=== PATIENT | female | born 1995 | race Caucasian/White ===

== ENCOUNTER 2020-11-07 17:45 | Emergency (ER) | payer OTHER ==
[~2020-11-07] VITALS: Ht 157 cm; Wt 85.0 kg
[2020-11-07] MEDS ORDERED: morphine INJ 10 MG/ML 1ML (SYR OR VIAL) IVP STA (17:58)
[2020-11-07] MEDS ORDERED: ONDANSETRON 4 MG/2 ML (SDV) Z0FRAN IVP ONE (18:00)
[2020-11-07] MEDS ORDERED: PANTOPRAZOLE 40 MG (PROTONIX) VIAL IV ONE (18:00)
[2020-11-07] MEDS ORDERED: ANTACID SUSP 30 ML UDC (MYLANTA) PO ONE (18:00)
[2020-11-07] MEDS ORDERED: NS IV 1000 ML 1,000 ML IV SCH (18:00)
[2020-11-07] MEDS ORDERED: LIDOCAINE 2% VISCOUS 15 ML UDC PO ONE (18:00)
--- NOTE | 2020-11-07 18:11 | ED General ---
General Chief Complaint: Abdominal/GI Problems Stated Complaint: ABD PAIN Nursing Triage Note: ABDOMINAL PAIN FOR 2 WEEKS OFF AND ON WITH DIARRHEA AND NAUSEA AFTER SHE EATS. DIFFUSE CRAMPING AND "MY BELLY HURTS" THAT STARTED AGAIN THIS AM. ONE EPISODE OF VOMITING. BM YESTERDAY. History of Present Illness Date Seen by Provider: Nov 07, 2020 Time Seen by Provider: 18:09 Initial Comments Patient presented to the emergency department for evaluation of abdominal pain that has been going on off and on for the past 2 weeks but she says it has been present all day today. She describes it as a diffuse cramping worse in the epigastrium and bilateral upper quadrants and radiates towards the back and has been associated with nausea and one episode of nonbloody nonbilious emesis this morning. She says she has had intermittent diarrhea as well but has not been on antibiotics traveled or chemotherapy recently. She denies fevers chills dysuria hematuria vaginal bleeding vaginal discharge or prior abdominal surgeries. She made the comment that she has been on Protonix intermittently over the past several weeks but vomited up her Protonix this morning. She is in no acute distress with normal vital signs. Allergies and Home Medications Allergies Coded Allergies: No Known Drug Allergies (Unverified , 11/07/20) Patient Home Medication List Home Medication List Reviewed: Yes Review of Systems Review of Systems Constitutional: no symptoms reported EENTM: no symptoms reported Respiratory: no symptoms reported Cardiovascular: no symptoms reported Gastrointestinal: diarrhea, nausea, vomiting Genitourinary: no symptoms reported Musculoskeletal: back pain Skin: no symptoms reported Psychiatric/Neurological: No Symptoms Reported All Other Systems Reviewed Negative Unless Noted: Yes Past Idmxhng-Jyuewx-Gnlvio Hx Patient Social History Tobacco Use?: No Use of E-Cig and/or Vaping dev: No Substance use?: No Alcohol Use?: No Pt feels they are or have been: No Physical Exam Vital Signs Vital Signs - First Documented 11/07/20 17:58 Temp 36.5 Pulse 120 Resp 16 B/P (MAP) 123/80 (94) Pulse Ox 98 O2 Delivery Room Air Capillary Refill : Less Than 3 Seconds Height, Weight, BMI Height: '" Weight: lbs. oz. kg; 34.00 BMI Method: General Appearance: No Apparent Distress, WD/WN Neck: Supple Respiratory: No Respiratory Distress Cardiovascular: Regular Rate, Rhythm Gastrointestinal: Soft, Tenderness (Diffuse upper abdominal tenderness to palpation with no focal pain rebound or guarding) Back: Normal Inspection Extremity: Normal Capillary Refill Neurologic/Psychiatric: Alert, Oriented x3 Skin: Warm/Dry Progress/Results/Core Measures Suspected Sepsis SIRS Temperature: Pulse: 120 Respiratory Rate: 16 Laboratory Tests 11/07/20 18:00: White Blood Count 14.1H Blood Pressure 123 /80 Mean: 94 Laboratory Tests 11/07/20 18:00: Creatinine 0.66, Platelet Count 297, Total Bilirubin 0.7 Results/Orders Lab Results Laboratory Tests Test 11/07/20 17:50 11/07/20 18:00 Range/Units Urine Color YELLOW Urine Clarity SLT CLOUDY Urine pH 8.0 5-9 Urine Specific [place] 1.020 1.016-1.022 Urine Protein NEGATIVE NEGATIVE Urine Glucose (UA) NEGATIVE NEGATIVE Urine Ketones NEGATIVE NEGATIVE Urine Nitrite NEGATIVE NEGATIVE Urine Bilirubin NEGATIVE NEGATIVE Urine Urobilinogen 0.2 < = 1.0 MG/DL Urine Leukocyte Esterase NEGATIVE NEGATIVE Urine RBC (Auto) NEGATIVE NEGATIVE Urine RBC NONE /HPF Urine WBC 0-2 /HPF Urine Squamous Epithelial Cells 5-10 /HPF Urine Crystals NONE /LPF Urine Bacteria FEW H /HPF Urine Casts NONE /LPF Urine Mucus NEGATIVE /LPF Urine Culture Indicated NO Urine Test NEGATIVE NEGATIVE White Blood Count 14.1 H 4.3-11.0 10^3/uL Red Blood Count 5.19 4.35-5.85 10^6/uL Hemoglobin 15.4 11.5-16.0 G/DL Hematocrit 46 35-52 % Mean Corpuscular Volume 88 80-99 FL Mean Corpuscular Hemoglobin 30 25-34 PG Mean Corpuscular Hemoglobin Concent 34 32-36 G/DL Red Cell Distribution Width 12.7 10.0-14.5 % Platelet Count 297 130-400 10^3/uL Mean Platelet Volume 10.1 7.4-10.4 FL Neutrophils (%) (Auto) 87 H 42-75 % Lymphocytes (%) (Auto) 7 L 12-44 % Monocytes (%) (Auto) 6 0-12 % Eosinophils (%) (Auto) 1 0-10 % Basophils (%) (Auto) 0 0-10 % Neutrophils # (Auto) 12.3 H 1.8-7.8 X 10^3 Lymphocytes # (Auto) 0.9 L 1.0-4.0 X 10^3 Monocytes # (Auto) 0.8 0.0-1.0 X 10^3 Eosinophils # (Auto) 0.1 0.0-0.3 10^3/uL Basophils # (Auto) 0.0 0.0-0.1 10^3/uL Neutrophils % (Manual) 78 % Lymphocytes % (Manual) 11 % Monocytes % (Manual) 3 % Eosinophils % (Manual) 1 % Basophils % (Manual) 0 % Band Neutrophils 7 % Sodium Level 137 135-145 MMOL/L Potassium Level 4.3 3.6-5.0 MMOL/L Chloride Level 102 98-107 MMOL/L Carbon Dioxide Level 23 21-32 MMOL/L Anion Gap 12 5-14 MMOL/L Blood Urea Nitrogen 8 7-18 MG/DL Creatinine 0.66 0.60-1.30 MG/DL Estimat Glomerular Filtration Rate 109 BUN/Creatinine Ratio 12 Glucose Level 99 70-105 MG/DL Calcium Level 9.6 8.5-10.1 MG/DL Corrected Calcium 8.5-10.1 MG/DL Total Bilirubin 0.7 0.1-1.0 MG/DL Aspartate Amino Transf (AST/SGOT) 14 5-34 U/L Alanine Aminotransferase (ALT/SGPT) 20 0-55 U/L Alkaline Phosphatase 80 40-136 U/L Total Protein 8.0 6.4-8.2 GM/DL Albumin 4.6 H 3.2-4.5 GM/DL Lipase 16 8-78 U/L My Orders Orders - VAMSHI OLVERA DO Cbc With Automated Diff (11/07/20 17:58) Comprehensive Metabolic Panel (11/07/20 17:58) Hcg,Qualitative Urine (11/07/20 17:58) Ua Culture If Indicated (11/07/20 17:58) Lipase (11/07/20 17:58) Ct Abdomen/Pelvis W (11/07/20 17:58) Iv/Invasive Line Insertion .IV start (11/07/20 17:58) Ondansetron Injection (Zofran Injectio (11/07/20 18:00) Morphine Injection (Morphine Injection (11/07/20 17:58) Antacid Suspension (Mylanta Suspension (11/07/20 18:00) Pantoprazole Injection (Protonix Injecti (11/07/20 18:00) Lidocaine 2% Viscous 15 Ml (Xylocaine Vi (11/07/20 18:00) Ns Iv 1000 Ml (Sodium Chloride 0.9%) (11/07/20 18:00) Manual Differential (11/07/20 18:00) Iohexol Injection (Omnipaque 350 Mg/Ml 1 (11/07/20 19:00) Received Contrast (Hold Metformin- Contr (11/07/20 19:00) Sodium Chloride Flush (Catheter Flush Sy (11/07/20 19:00) Ns (Ivpb) (Sodium Chloride 0.9% Ivpb Bag (11/07/20 19:00) Medications Given in ED Current Medications Medications Dose Ordered Sig/Tiara Route Start Time Stop Time Status Last Admin Dose Admin Al Hydrox/Mg Hydrox/Simethicone 30 ml ONCE ONCE PO 11/07/20 18:00 11/07/20 18:01 DC 11/07/20 18:07 30 ML Iohexol 100 ml ONCE ONCE IV 11/07/20 19:00 11/07/20 19:01 DC 11/07/20 18:59 100 ML Lidocaine HCl 5 ml ONCE ONCE PO 11/07/20 18:00 11/07/20 18:01 DC 11/07/20 18:07 5 ML Ondansetron HCl 4 mg ONCE ONCE IVP 11/07/20 18:00 11/07/20 18:01 DC 11/07/20 18:05 4 MG Pantoprazole 40 mg ONCE ONCE IV 11/07/20 18:00 11/07/20 18:01 DC 11/07/20 18:06 40 MG Sodium Chloride 10 ml NEEDED PRN IV 11/07/20 19:00 11/07/20 18:59 10 ML Sodium Chloride 100 ml ONCE ONCE IV 11/07/20 19:00 11/07/20 19:01 DC 11/07/20 18:59 80 ML Vital Signs/I&O 11/07/20 17:58 Temp 36.5 Pulse 120 Resp 16 B/P (MAP) 123/80 (94) Pulse Ox 98 O2 Delivery Room Air Capillary Refill : Less Than 3 Seconds Blood Pressure Mean: 94 Progress Note : Progress Note Patient with nonspecific nonfocal abdominal pain that is likely gastritis or an ulcer. I will check labs and imaging to rule out acute surgical process and treat her symptoms and then reassess. Patient has findings of leukocytosis on her blood work and findings of a transverse colitis on her CT. no signs of surgical process and patient's pain improved significantly and her repeat abdominal exam is benign with no focal tenderness rebound or guarding. Patient said that she talk to her doctor and that they ordered a colonoscopy but no date has been sent. I told her I will start her on Cipro Flagyl who prescribed her medications for pain and nausea and she will need to take in a soft nonirritating diet with plenty of fluids. I told her to follow with her primary care provider later this week and come back to the ED sooner with worsening pain fevers vomiting or other general concerns. Patient aware and agreeable with plan and verbalized understanding of the above instructions. Departure Impression Primary Impression: Abdominal pain Qualified Codes: R10.84 - Generalized abdominal pain Additional Impressions: Nausea and vomiting Colitis Leukocytosis Disposition: HOME, SELF-CARE Condition: Stable Departure-Patient Inst. Referrals: DELONTE PFEIFFER MD (PCP/Family) Primary Care Physician Patient Instructions: Colitis Scripts Ondansetron (Ondansetron Odt) 4 Mg Tab.rapdis 4 MG PO Q6H PRN for NAUSEA/VOMITING-1ST LINE, #20 TAB Prov: VAMSHI OLVERA DO 11/07/20 Hydrocodone/Acetaminophen (Hydrocodone-Acetamin 5-325 mg) 1 Each Tablet 1 TAB PO Q6H PRN for PAIN-MODERATE (5-7), #20 TAB Prov: VAMSHI OLVERA DO 11/07/20 Ciprofloxacin HCl (Ciprofloxacin HCl) 500 Mg Tablet 500 MG PO BID, #14 TAB Prov: VAMSHI OLVERA DO 11/07/20 Metronidazole (Flagyl) 500 Mg Tablet 500 MG PO BID, #14 TAB Prov: VAMSHI OLVERA DO 11/07/20 VAMSHI OLVERA DO Nov 07, 2020 18:11
[2020-11-07 18:22] LABS: BASOPHILS % (AUTO) 0 % (0-10); EOSINOPHILS % (AUTO) 1 % (0-10); HEMATOCRIT 46 % (35-52); HEMOGLOBIN 15.4 G/DL (11.5-16.0); LYMPHOCYTES % (AUTO) 7 % (12-44); MEAN CORPUSCULAR HEMOGLOBIN 30 PG (25-34); MEAN CORPUSCULAR HGB CONC 34 G/DL (32-36); MEAN CORPUSCULAR VOLUME 88 FL (80-99); MEAN PLATELET VOLUME 10.1 FL (7.4-10.4); MONOCYTES % (AUTO) 6 % (0-12); NEUTROPHILS # (AUTO) 12.3 X 10^3 (1.8-7.8); NEUTROPHILS % (AUTO) 87 % (42-75); PLATELET COUNT 297 10^3/uL (130-400); WHITE BLOOD COUNT 14.1 10^3/uL (4.3-11.0)
[2020-11-07 18:23] LABS: CLARITY,URINE SLT CLOUDY; COLOR,URINE YELLOW; GLUCOSE, URINE (UA) NEGATIVE (NEGATIVE); PROTEIN,URINE NEGATIVE (NEGATIVE)
[2020-11-07 18:23] LABS: EOSINOPHILS # (AUTO) 0.1 10^3/uL (0.0-0.3); LYMPHOCYTES # (AUTO) 0.9 X 10^3 (1.0-4.0); MONOCYTES # (AUTO) 0.8 X 10^3 (0.0-1.0)
[2020-11-07 18:24] LABS: BACTERIA,URINE FEW /HPF; BILIRUBIN,URINE NEGATIVE (NEGATIVE); KETONES,URINE NEGATIVE (NEGATIVE); LEUKOCYTE ESTERASE ,URINE NEGATIVE (NEGATIVE); NITRITE,URINE NEGATIVE (NEGATIVE); WBC,URINE 0-2 /HPF
[2020-11-07 18:34] LABS: POTASSIUM 4.3 MMOL/L (3.6-5.0); SODIUM 137 MMOL/L (135-145)
[2020-11-07 18:35] LABS: ALANINE AMINOTRANSFERASE 20 U/L (0-55); ALBUMIN 4.6 GM/DL (3.2-4.5); ALKALINE PHOSPHATASE 80 U/L (40-136); BILIRUBIN,TOTAL 0.7 MG/DL (0.1-1.0); BUN/CREATININE RATIO 12; CALCIUM 9.6 MG/DL (8.5-10.1); CARBON DIOXIDE 23 MMOL/L (21-32); CHLORIDE 102 MMOL/L (98-107); CREATININE SERUM 0.66 MG/DL (0.60-1.30); GFR ESTIMATED 109; GLUCOSE 99 MG/DL (70-105); LIPASE 16 U/L (8-78)
[2020-11-07 19:00] LABS: BAND NEUTROPHILS 7 %; BASOPHILS % (MANUAL) 0 %; EOSINOPHILS % (MANUAL) 1 %; LYMPHOCYTES % (MANUAL) 11 %; MONOCYTES % (MANUAL) 3 %; NEUTROPHILS % (MANUAL) 78 %
[2020-11-07] MEDS ORDERED: CATHETER FLUSH 10 ML SYR IV PRN (19:00)
[2020-11-07] MEDS ORDERED: NS 100 ML (IVPB) BAG IV ONE (19:00)
[2020-11-07] MEDS ORDERED: HOLD METFORMIN - RECEIVED CONTRAST 20 ML VIAL IV SCH (19:00)
[2020-11-07] MEDS ORDERED: IOHEXOL 350 MG/ML 100 ML (OMNIPAQUE 350) VIAL IV ONE (19:00)
--- NOTE | 2020-11-07 19:19 | Diagnostic Imaging Report ---
PROCEDURE: CT abdomen and pelvis with contrast. TECHNIQUE: Multiple contiguous axial images were obtained through the abdomen and pelvis after administration of intravenous contrast. Auto Exposure Controls were utilized during the CT exam to meet ALARA standards for radiation dose reduction. All CT scans use one or more of the following dose optimizing techniques: automated exposure control, MA and/or KvP adjustment based on patient size and exam type or iterative reconstruction. DATE: November 07, 2020. COMPARISON: None. INDICATION: 25-year-old female, upper abdominal pain. FINDINGS: The visualized portions of the lungs are clear. The heart is not enlarged. There is no pericardial effusion. The liver is normal in size and contour. There is low-attenuation adjacent to the ligamentum teres most likely relating to focal fat, especially given the characteristic location. There is no otherwise identified liver lesion. The main, right, and left portal veins are patent. The gallbladder is unremarkable. There is no intrahepatic or extrahepatic bile duct dilation. The main pancreatic duct is not abnormally dilated. Unremarkable appearance of the pancreatic parenchyma. The spleen is normal in size. The adrenal glands are unremarkable. There is a punctate nonobstructing right renal stone on axial image 31. Urinary collecting systems are not distended. There is no identified ureteral stone. The urinary bladder is unremarkable. Grossly unremarkable appearance of the uterus and adnexa on CT. There is mucosal enhancement of the transverse colon. The appendix is unremarkable and well seen on axial image 51 and adjacent sequential images. There is no free intraperitoneal air. There is no drainable fluid collection. There is a small amount of free pelvic fluid. There is no identified abnormally enlarged lymph node in the abdomen or pelvis meeting CT size criteria for adenopathy. There is no identified acute bony abnormality. IMPRESSION: CT ABDOMEN AND PELVIS. 1. Mucosal enhancement of the transverse colon likely relating to a nonspecific colitis. Infectious and inflammatory etiologies are favored. 2. Small amount of free pelvic fluid which is potentially physiologic. 3. Low-attenuation area in the liver adjacent to the ligamentum teres most likely relating to an area of focal fat, especially given the characteristic location. 4. Punctate 1 mm nonobstructing right renal stone. No ureteral stone or hydronephrosis. Dictated by: Dictated on workstation # [id number]
[2020-11-07] MEDS ORDERED: METR500T PO (19:34)
[2020-11-07] MEDS ORDERED: ONDA4TAB11 PO (19:34)
[2020-11-07] MEDS ORDERED: ACHD5005 PO (19:34)
[2020-11-07] MEDS ORDERED: CIPR500T5 PO (19:34)
[2020-11-07 19:37] VITALS: BP 105/58
== END 2020-11-07 19:44 | disposition home or self-care (01) ==
LOC: ER FS 17:47
DX: K52.9 Noninfective gastroenteritis and colitis, unspecified (principal); D72.829 Elevated white blood cell count, unspecified
CPT/HCPCS: 36415; 74177; 80053; 81000; 83690; 84703; 85007; 85027; 96374; 96375

== ENCOUNTER 2021-06-02 19:36 | Emergency (ER) | payer OTHER ==
[~2021-06-02] VITALS: Ht 157 cm; Wt 84.0 kg
[~2021-06-02 19:36] MED LIST: ACHD5005 PO; CIPR500T5 PO; METR500T PO; ONDA4TAB11 PO
[2021-06-02] MEDS ORDERED: PROMETHAZINE INJ 25 MG/ML (PHENERGAN) AMP IVP STA (19:47)
[2021-06-02] MEDS ORDERED: LACTATED RINGERS 1,000 ML IV STA (19:47)
--- NOTE | 2021-06-02 19:47 | ED GI ---
General Stated Complaint: NAUSEA/VOMITING History of Present Illness Date Seen by Provider: Jun 02, 2021 Time Seen by Provider: 19:45 Initial Comments 26-year-old female presents with nausea vomiting diarrhea. She reports been going on for about 24 hours. Reports that she is having a hard time keeping anything down. Patient is 10 weeks and just wants to be evaluated. She reports that she takes Effexor and has been keep it down and is feeling a little foggy headed because of that. Patient denies any fever, chills, cough, shortness of breath or other systemic complaints. Allergies and Home Medications Allergies Coded Allergies: No Known Drug Allergies (Unverified , 11/07/20) Patient Home Medication List Home Medication List Reviewed: Yes Ciprofloxacin HCl (Ciprofloxacin HCl) 500 Mg Tablet, 500 MG PO BID Prescribed by: VAMSHI OLVERA on 11/07/201933 Hydrocodone/Acetaminophen (Hydrocodone-Acetamin 5-325 mg) 1 Each Tablet, 1 TAB PO Q6H PRN for PAIN-MODERATE (5-7) Prescribed by: VAMSHI OLVERA on 11/07/201934 Metronidazole (Flagyl) 500 Mg Tablet, 500 MG PO BID Prescribed by: VAMSHI OLVERA on 11/07/201933 Ondansetron (Ondansetron Odt) 4 Mg Tab.rapdis, 4 MG PO Q6H PRN for NAUSEA/VOMITING-1ST LINE Prescribed by: VAMSHI OLVERA on 11/07/201933 Review of Systems Review of Systems Constitutional: No chills, No fever Respiratory: Denies Cough, Denies Shortness of Air Gastrointestinal: Denies Abdominal Pain; Diarrhea, Nausea, Vomiting Genitourinary: No Symptoms Reported Musculoskeletal: no symptoms reported Skin: no symptoms reported Psychiatric/Neurological: No Symptoms Reported Endocrine: No Symptoms Reported Physical Exam Vital Signs Vital Signs - First Documented 06/02/21 19:42 Temp 36.3 Pulse 120 Resp 17 B/P (MAP) 138/85 (102) Pulse Ox 97 O2 Delivery Room Air Capillary Refill : Height/Weight/BMI Height: '" Weight: lbs. oz. kg; 34.00 BMI Method: General Appearance: WD/WN, no apparent distress Respiratory: lungs clear, normal breath sounds Cardiovascular: normal peripheral pulses, regular rate, rhythm Gastrointestinal: non tender, soft Extremities: normal range of motion, non-tender Neurologic/Psychiatric: alert, normal mood/affect, oriented x 3 Skin: normal color, warm/dry Progress/Results/Core Measures Results/Orders Lab Results Laboratory Tests Test 06/02/21 19:45 06/02/21 19:50 Range/Units Urine Color YELLOW Urine Clarity CLEAR Urine pH 6.0 5-9 Urine Specific [place] >=1.030 1.016-1.022 Urine Protein TRACE H NEGATIVE Urine Glucose (UA) NEGATIVE NEGATIVE Urine Ketones 2+ H NEGATIVE Urine Nitrite NEGATIVE NEGATIVE Urine Bilirubin 1+ H NEGATIVE Urine Urobilinogen 0.2 < = 1.0 MG/DL Urine Leukocyte Esterase NEGATIVE NEGATIVE Urine RBC (Auto) NEGATIVE NEGATIVE Urine RBC 2-5 H /HPF Urine WBC 0-2 /HPF Urine Squamous Epithelial Cells 2-5 /HPF Urine Crystals NONE /LPF Urine Bacteria TRACE /HPF Urine Casts NONE /LPF Urine Mucus LARGE H /LPF Urine Culture Indicated NO White Blood Count 11.5 H 4.3-11.0 10^3/uL Red Blood Count 4.62 3.80-5.11 10^6/uL Hemoglobin 13.5 11.5-16.0 g/dL Hematocrit 39 35-52 % Mean Corpuscular Volume 85 80-99 fL Mean Corpuscular Hemoglobin 29 25-34 pg Mean Corpuscular Hemoglobin Concent 35 32-36 g/dL Red Cell Distribution Width 12.7 10.0-14.5 % Platelet Count 293 130-400 10^3/uL Mean Platelet Volume 10.0 9.0-12.2 fL Immature Granulocyte % (Auto) 1 % Neutrophils (%) (Auto) 70 42-75 % Lymphocytes (%) (Auto) 21 12-44 % Monocytes (%) (Auto) 7 0-12 % Eosinophils (%) (Auto) 1 0-10 % Basophils (%) (Auto) 0 0-10 % Neutrophils # (Auto) 8.1 H 1.8-7.8 10^3/uL Lymphocytes # (Auto) 2.4 1.0-4.0 10^3/uL Monocytes # (Auto) 0.8 0.0-1.0 10^3/uL Eosinophils # (Auto) 0.1 0.0-0.3 10^3/uL Basophils # (Auto) 0.0 0.0-0.1 10^3/uL Immature Granulocyte # (Auto) 0.1 0.0-0.1 10^3/uL Sodium Level 134 L 135-145 MMOL/L Potassium Level 3.5 L 3.6-5.0 MMOL/L Chloride Level 98 98-107 MMOL/L Carbon Dioxide Level 22 21-32 MMOL/L Anion Gap 14 5-14 MMOL/L Blood Urea Nitrogen 7 7-18 MG/DL Creatinine 0.58 L 0.60-1.30 MG/DL Estimat Glomerular Filtration Rate 128 BUN/Creatinine Ratio 12 Glucose Level 114 H 70-105 MG/DL Calcium Level 9.3 8.5-10.1 MG/DL Corrected Calcium 9.2 8.5-10.1 MG/DL Total Bilirubin 0.6 0.1-1.0 MG/DL Aspartate Amino Transf (AST/SGOT) 11 5-34 U/L Alanine Aminotransferase (ALT/SGPT) 12 0-55 U/L Alkaline Phosphatase 69 40-136 U/L Total Protein 7.5 6.4-8.2 GM/DL Albumin 4.1 3.2-4.5 GM/DL Lipase 15 8-78 U/L My Orders Orders - VÁSQUEZ,JOLANTA L DO Promethazine Injection (Phenergan Injec (06/02/21 19:47) Lactated Ringers (Lr 1000 Ml Iv Solution (06/02/21 19:47) Cbc With Automated Diff (06/02/21 19:47) Comprehensive Metabolic Panel (06/02/21 19:47) Lipase (06/02/21 19:47) Ua Culture If Indicated (06/02/21 19:47) Vital Signs/I&O 06/02/21 06/02/21 19:42 20:30 Temp 36.3 Pulse 120 98 Resp 17 15 B/P (MAP) 138/85 (102) 128/70 Pulse Ox 97 99 O2 Delivery Room Air Room Air Progress Progress Note : Progress Note Patient with likely viral gastroenteritis. Patient is feeling and better with no more vomiting she is still mildly nauseous. Patient does have Zofran at home. I did recommend she uses caution due to being 10 weeks . She is to follow-up with her OB if she continues to have nausea and vomiting during for further recommendations. Recommended a clear liquid diet for the next 24 hours and then advance as tolerated. She can return to the ER as neede d. Patient was stable and discharged Departure Impression Primary Impression: Viral gastroenteritis Additional Impression: 10 weeks gestation of Disposition: 01 HOME, SELF-CARE Condition: Stable Departure-Patient Inst. Referrals: DELONTE PFEIFFER MD (PCP/Family) Primary Care Physician Patient Instructions: Viral Gastroenteritis, - The Third Month Add. Discharge Instructions: Clear liquid diet for the next 24 hours and advance as Follow-up with your OB next week if you continue to have nausea and vomiting Return to the ER as needed JOLANTA VÁSQUEZ DO Jun 02, 2021 19:47
[2021-06-02 19:52] LABS: CLARITY,URINE CLEAR; COLOR,URINE YELLOW; GLUCOSE, URINE (UA) NEGATIVE (NEGATIVE); KETONES,URINE 2+ (NEGATIVE); NITRITE,URINE NEGATIVE (NEGATIVE); PROTEIN,URINE TRACE (NEGATIVE)
[2021-06-02 19:53] LABS: BACTERIA,URINE TRACE /HPF; BILIRUBIN,URINE 1+ (NEGATIVE); LEUKOCYTE ESTERASE ,URINE NEGATIVE (NEGATIVE); WBC,URINE 0-2 /HPF
[2021-06-02 20:02] LABS: BASOPHILS % (AUTO) 0 % (0-10); EOSINOPHILS # (AUTO) 0.1 10^3/uL (0.0-0.3); EOSINOPHILS % (AUTO) 1 % (0-10); HEMATOCRIT 39 % (35-52); HEMOGLOBIN 13.5 g/dL (11.5-16.0); LYMPHOCYTES # (AUTO) 2.4 10^3/uL (1.0-4.0); LYMPHOCYTES % (AUTO) 21 % (12-44); MEAN CORPUSCULAR HEMOGLOBIN 29 pg (25-34); MEAN CORPUSCULAR HGB CONC 35 g/dL (32-36); MEAN CORPUSCULAR VOLUME 85 fL (80-99); MONOCYTES # (AUTO) 0.8 10^3/uL (0.0-1.0); MONOCYTES % (AUTO) 7 % (0-12); NEUTROPHILS # (AUTO) 8.1 10^3/uL (1.8-7.8); NEUTROPHILS % (AUTO) 70 % (42-75); PLATELET COUNT 293 10^3/uL (130-400); WHITE BLOOD COUNT 11.5 10^3/uL (4.3-11.0)
[2021-06-02 20:21] LABS: ALBUMIN 4.1 GM/DL (3.2-4.5); BILIRUBIN,TOTAL 0.6 MG/DL (0.1-1.0); CALCIUM 9.3 MG/DL (8.5-10.1); CREATININE SERUM 0.58 MG/DL (0.60-1.30); POTASSIUM 3.5 MMOL/L (3.6-5.0); TOTAL PROTEIN 7.5 GM/DL (6.4-8.2)
[2021-06-02 20:45] VITALS: BP 128/70
== END 2021-06-02 20:45 | disposition home or self-care (01) ==
LOC: EDUNIT# 19:36 → ER FS 19:39
DX: O98.811 Other maternal infectious and parasitic diseases complicating pregnancy, first trimester (principal); A08.4 Viral intestinal infection, unspecified; Z3A.10 10 weeks gestation of pregnancy
CPT/HCPCS: 36415; 80053; 81000; 83690; 85025

== ENCOUNTER 2022-04-28 12:02 | Emergency (ER) | payer OTHER ==
[~2022-04-28] VITALS: Ht 157 cm; Wt 77.0 kg
[2022-04-28 12:10] VITALS: BP 118/78
[2022-04-28] MEDS ORDERED: ONDANSETRON 4 MG (ZOFRAN) ORAL DISSOLVE TAB PO STA (12:21)
--- NOTE | 2022-04-28 12:21 | ED GI ---
General Chief Complaint: Abdominal/GI Problems Stated Complaint: ABD PAIN, N/V, DIARRHEA Nursing Triage Note: Patient has presented to ER with cc of Nausea, vomiting, diarrhea, and abd pain. This started about 1100 this morning. She states that she feels weak. Source of Information: Patient History of Present Illness Date Seen by Provider: Apr 28, 2022 Time Seen by Provider: 12:14 Initial Comments 27-year-old female patient complaining of right side abdominal dull pain and rated her pain 4/10 with nausea and 1 episode of nonbloody diarrhea about an hour prior to ER and complaining of generalized weakness. Patient denies vomiting, fever and chills, cough and congestion, headache and myalgia, sick contact, urinary symptoms, , history of the same problem. Allergies and Home Medications Allergies Coded Allergies: No Known Drug Allergies (Unverified , 11/07/20) Patient Home Medication List Home Medication List Reviewed: Yes Ciprofloxacin HCl (Ciprofloxacin HCl) 500 Mg Tablet, 500 MG PO BID Prescribed by: VAMSHI OLVERA on 11/07/201933 Hydrocodone/Acetaminophen (Hydrocodone-Acetamin 5-325 mg) 1 Each Tablet, 1 TAB PO Q6H PRN for PAIN-MODERATE (5-7) Prescribed by: VAMSHI OLVERA on 11/07/201934 Metronidazole (Flagyl) 500 Mg Tablet, 500 MG PO BID Prescribed by: VAMSHI OLVERA on 11/07/201933 Ondansetron (Ondansetron Odt) 4 Mg Tab.rapdis, 4 MG PO Q6H PRN for NAUSEA/VOMITING-1ST LINE Prescribed by: VAMSHI OLVERA on 11/07/201933 Ondansetron (Ondansetron Odt) 4 Mg Tab.rapdis, 4 MG PO TID PRN for NAUSEA-1ST LINE Prescribed by: Noemi wilson on 04/28/22 1246 Review of Systems Review of Systems Constitutional: see HPI EENTM: See HPI Respiratory: See HPI Cardiovascular: See HPI Gastrointestinal: See HPI Genitourinary: See HPI Musculoskeletal: see HPI Skin: see HPI Psychiatric/Neurological: See HPI Endocrine: See HPI Hematologic/Lymphatic: See HPI All Other Systems Reviewed Negative Unless Noted: Yes Past Hadhwtl-Wonjic-Tuiqeu Hx Patient Social History Tobacco Use?: No Use of E-Cig and/or Vaping dev: No Substance use?: No Alcohol Use?: No Immunizations Up To Date First/Initial COVID19 Vaccinat: denies Physical Exam Vital Signs Vital Signs - First Documented 04/28/22 12:10 Temp 36.0 Pulse 87 Resp 16 B/P (MAP) 118/78 (91) Pulse Ox 97 O2 Delivery Room Air Capillary Refill : Height/Weight/BMI Height: '" Weight: lbs. oz. kg; 31.00 BMI Method: General Appearance: WD/WN, no apparent distress HEENT: PERRL/EOMI, normal ENT inspection, pharynx normal Neck: non-tender, full range of motion Respiratory: chest non-tender, lungs clear, normal breath sounds, no respiratory distress, no accessory muscle use Cardiovascular: regular rate, rhythm, no edema, no gallop Gastrointestinal: normal bowel sounds, non tender, soft, no organomegaly Extremities: normal range of motion, non-tender, normal inspection Back: normal inspection, no CVA tenderness Neurologic/Psychiatric: alert, normal mood/affect, oriented x 3 Skin: normal color, warm/dry Progress/Results/Core Measures Results/Orders Lab Results Laboratory Tests Test 04/28/22 12:23 Range/Units Urine Color YELLOW Urine Clarity SLIGHTLY CLOUDY Urine pH 5.5 5-9 Urine Specific [place] 1.025 H 1.016-1.022 Urine Protein NEGATIVE NEGATIVE Urine Glucose (UA) NEGATIVE NEGATIVE Urine Ketones NEGATIVE NEGATIVE Urine Nitrite NEGATIVE NEGATIVE Urine Bilirubin NEGATIVE NEGATIVE Urine Urobilinogen 0.2 < = 1.0 MG/DL Urine Leukocyte Esterase 1+ H NEGATIVE Urine RBC (Auto) NEGATIVE NEGATIVE Urine RBC NONE /HPF Urine WBC 50-100 H /HPF Urine Squamous Epithelial Cells >50 H /HPF Urine Crystals NONE /LPF Urine Bacteria LARGE H /HPF Urine Casts NONE /LPF Urine Mucus LARGE H /LPF Urine Culture Indicated NO My Orders Orders - NOEMI WILSON MD Urinalysis (04/28/22 12:21) Ondansetron Oral Dissolve Tab (Zofran (04/28/22 12:21) Vital Signs/I&O 04/28/22 12:10 Temp 36.0 Pulse 87 Resp 16 B/P (MAP) 118/78 (91) Pulse Ox 97 O2 Delivery Room Air Blood Pressure Mean: 91 Progress Progress Note : Progress Note 27-year-old female patient with complaining of 1 episode of diarrhea and nausea without vomiting, abdominal. Patient had unremarkable physical exam and vital sign. Abdomen was soft without any tenderness. She denied and UA showed contamination without needs for culture. Patient had another episode of diarrhea while she was in ER but felt better and tolerated oral intake. Patient advised to take liquid diet without solid food and prescription for Zofran was given. Patient advised if develops more episodes of diarrhea take [id number] Imodium. Departure Impression Primary Impression: Viral gastroenteritis Disposition: HOME, SELF-CARE Condition: Improved Departure-Patient Inst. Decision time for Depature: 12:45 Referrals: DELONTE PFEIFFER MD (PCP/Family) Primary Care Physician Patient Instructions: Viral Gastroenteritis, Adult (DC) Add. Discharge Instructions: Drink plenty of liquids No solid food today May take [id number] Imodium for diarrhea if have more episodes of diarrhea Follow-up with your primary care physician or return to ER as needed All discharge instructions reviewed with patient and/or family. Voiced understanding. Scripts Ondansetron (Ondansetron Odt) 4 Mg Tab.rapdis 4 MG PO TID PRN for NAUSEA-1ST LINE, #10 TAB Prov: NOEMI WILSON MD 04/28/22 NOEMI WILSON MD Apr 28, 2022 12:21
[2022-04-28 12:33] LABS: BILIRUBIN,URINE NEGATIVE (NEGATIVE); COLOR,URINE YELLOW; GLUCOSE, URINE (UA) NEGATIVE (NEGATIVE); KETONES,URINE NEGATIVE (NEGATIVE); LEUKOCYTE ESTERASE ,URINE 1+ (NEGATIVE); NITRITE,URINE NEGATIVE (NEGATIVE); PH,URINE 5.5 (5-9); PROTEIN,URINE NEGATIVE (NEGATIVE)
[2022-04-28 12:37] LABS: BACTERIA,URINE LARGE /HPF; CLARITY,URINE SLIGHTLY CLOUDY; SQUAMOUS EPITHELIAL CELL,UR >50 /HPF; WBC,URINE 50-100 /HPF
[2022-04-28] MEDS ORDERED: ONDA4TAB11 PO (12:46)
== END 2022-04-28 12:56 | disposition home or self-care (01) ==
LOC: EDUNIT# 12:02 → ER FS 12:03
DX: A08.4 Viral intestinal infection, unspecified (principal); Z28.310 Unvaccinated for COVID-19
CPT/HCPCS: 81000; 84703; 99283